=== PATIENT | male | born 1990 | race Asian ===

== ENCOUNTER 2017-12-16 23:29 | Emergency (ER) | payer OTHER ==
[2017-12-17 00:54] VITALS: BP 00/00
--- NOTE | 2017-12-17 01:01 | ED ---
Skin Complaint - HPI Summary HPI Summary: patient is a 27-year-old male presenting to the ED after hitting his hand onto a ping-pong table and sustaining 3 small abrasions to the thumb, index finger and fourth finger. No lacerations or puncture wounds. Denies any pain on arrival. Tetanus it only immunizations are up-to-date. He is concerned that he may lose the thumbnail. - History of Current Complaint Chief Complaint: EDLacSutureRecheck Time Seen by Provider: 12/17/17 00:21 Stated Complaint: FING LAC Hx Obtained From: Patient Onset/Duration: Started Hours Ago Skin Exposure Onset/Duration: Hours Ago Timing: Constant Onset Severity: Mild Current Severity: None Pain Intensity: 4 Pain Scale Used: 0-10 Numeric - Allergy/Home Medications Allergies/Adverse Reactions: Allergies Allergy/AdvReac Type Severity Reaction Status Date / Time Penicillins Allergy Rash Verified 12/16/17 23:37 PMH/Surg Hx/FS Hx/Imm Hx Previously Healthy: Yes - Immunization History Hx Pertussis Vaccination: No Immunizations Up to Date: Unable to Obtain/Confirm Infectious Disease History: No Infectious Disease History: Denies: Traveled Outside the [place] in Last 30 Days - Social History Occupation: Unemployed, Student Lives: Dormitory/Roommates Alcohol Use: Occasionally Hx Substance Use: No Substance Use Type: Reports: None Smoking Status (MU): Never Smoked Tobacco Review of Systems Constitutional: Negative Negative: Fever, Chills, Fatigue, Skin Diaphoresis Negative: Palpitations, Chest Pain Negative: Shortness Of Breath, Cough Genitourinary: Negative Positive: no symptoms reported, see HPI Negative: Arthralgia, Myalgia Positive: Other - 3 small abrasions to the thumb, index and fourth finger Neurological: Negative All Other Systems Reviewed And Are Negative: Yes Physical Exam Triage Information Reviewed: Yes Vital Signs On Initial Exam: Initial Vitals Temp Pulse Resp BP Pulse Ox 97.9 F 65 16 112/69 97 12/16/17 23:35 12/16/17 23:35 12/16/17 23:35 12/16/17 23:35 12/16/17 23:35 Vital Signs Reviewed: Yes Appearance: Positive: No Pain Distress, Well-Nourished Skin: Positive: Warm, Skin Color Reflects Adequate Perfusion, Other - 3 small abrasions to the thumb, index and fourth finger Head/Face: Positive: Normal Head/Face Inspection Eyes: Positive: EOMI, MADISYN, Conjunctiva Clear Neck: Positive: Nontender, No Lymphadenopathy Respiratory/Lung Sounds: Positive: Clear to Auscultation, Breath Sounds Present Cardiovascular: Positive: RRR Musculoskeletal: Positive: Strength/ROM Intact Neurological: Positive: Speech Normal Psychiatric: Positive: Normal, Affect/Mood Appropriate AVPU Assessment: Alert Diagnostics - Vital Signs Vital Signs Temp Pulse Resp BP Pulse Ox 12/17/17 00:53 0 F 0 0 00/00 0 12/16/17 23:35 97.9 F 65 16 112/69 97 - Laboratory Lab Statement: Any lab studies that have been ordered have been reviewed, and results considered in the medical decision making process. Course/Dx - Course Course Of Treatment: patient is evaluated for abrasions to the thumb, index finger and fourth finger. The lateral greater than and Band-Aids applied. Tetanus and other immunizations are up-to-date. There is a small 0.2 cm in diameter ecchymosis at the nailbed, however it is unlikely this will cause any deformity or loss of nail. Patient is okay for discharge at this time. - Diagnoses Provider Diagnoses: Abrasion Discharge - Sign-Out/Discharge Documenting (check all that apply): Discharge/Admit/Transfer - Discharge Plan Condition: Stable Disposition: HOME Referrals: [facility] - Esteban GUTIERREZ [Primary Care Provider] - - Billing Disposition and Condition Condition: STABLE Disposition: Home
== END 2017-12-17 00:53 | disposition home or self-care (01) ==
LOC: EDSEX → ED 23:29
DX: S60.311A Abrasion of right thumb, initial encounter (principal); S60.410A Abrasion of right index finger, initial encounter; S60.414A Abrasion of right ring finger, initial encounter; W22.8XXA Striking against or struck by other objects, initial encounter; Y92.9 Unspecified place or not applicable
CPT/HCPCS: 99281